=== PATIENT | female | born 1945 | race Caucasian/White ===

== ENCOUNTER 2017-03-08 09:00 | Day surgery (SDC) | payer MEDICARE ==
[2017-03-06 08:46] VITALS: BMI 37.0
[~2017-03-08 09:00] MED LIST: LACTATED RINGERS 1,000 ML IV SCH
[2017-03-08 09:26] VITALS: TEMP 98.9
[2017-03-08] MEDS ORDERED: LIDOCAINE 1% 20 ML VIAL (10MG/ML) FOR IV START INTRADERMA ONE (09:31)
--- NOTE | 2017-03-08 10:43 | P.PCN ---
Date of Procedure: 03/08/17 Preoperative Diagnosis: Postoperative Diagnosis: Procedure(s) Performed: Procedures: Esophagogastroduodenoscopy and biopsy and colonoscopy and polypectomy. Preoperative diagnosis: Chronic reflux symptoms, symptomatic despite therapy and intermittent dysphagia. History of polyps. Postoperative diagnosis: 1. Hiatal hernia with no obvious esophagitis or completed complicated reflux disease. 2. Mild antral gastritis. 3. Diverticulosis of the colon with no evidence of acute diverticulitis. 4. Distal sigmoid stricture required use of the pediatric colonoscope. 5. Two small polyps snared one in the cecum and one in the distal sigmoid but no large polyps or cancer. Preparation: HalfLytely prep. Sedation: Was provided by anesthesia. Brief clinical history: The patient is a 71-year-old female who I have evaluated in the past regarding chronic reflux symptoms and history of polyps. I have seen her in the office recently and she has been having issues with symptomatic reflux despite treatment as well as intermittent dysphagia. We scheduled both an upper endoscopy and colonoscopy because of her history. Since her office visit, she apparently has been having some nonspecific abdominal discomfort as well. Procedure: With the patient on her left lateral decubitus position and after informed consent and adequate sedation, I passed the Olympus-GIF 160 video upper endoscope through the cricopharyngeus down the esophagus. GE junction was around 35-36 cm from the incisors and there was a moderately sized hiatal hernia around 3-4 cm. The esophagus did not show any definite inflammation and there was no obstructing strictures or Ramirez's esophagus. The endoscope was then passed into the stomach which was insufflated with air and inspected in detail including the retroflex view in the cardia. There was some mottling and erythema in the antrum but no ulcers or erosions. Pyloric channel did not show any ulcers. Duodenal bulb, post bulbar area and descending duodenum showed minimal erythema. I obtained biopsies from the duodenum, antrum and esophagus then I proceeded with the colonoscopy. Perianal area did not show any fissures or fistulas. There were no masses felt on digital rectal examination. The Olympus CFH 190L was initially used and was inserted in the rectum in the usual fashion and advanced. However, I was not able to advance it in the distal sigmoid where there was significant diverticular disease and what appeared to be a benign distal stricture possibly related to prior diverticulitis. I exchanged the endoscope with a pediatric PCFQ 180 AL video colonoscope which I was able to pass in that area and advance all the way to the cecum. There was a flat small polyp in the cecum which I snared and there was a small polyp in the distal sigmoid just distal to the strictured area, just described, which I snared as well and retrieved by suction. The mucosa appeared healthy. Other diverticular orifices were seen scattered on the left side and some on the right side with no evidence of acute diverticulitis or strictures. I retroflexed the endoscope in the rectum before the endoscope was withdrawn. The patient tolerated the procedure well. Plan: The patient was reassured. Will await pathology results. Further plans can be made based on her course and biopsy results. I will keep you updated on her progress. Consideration will be made for repeat colonoscopy in 5 years depending on her overall health at that time. She will follow-up with you as planned. Implants: Indications for Procedure: Operative Findings: Description of Procedure:
[2017-03-08 10:57] VITALS: BP 128/77; PULSE 65; RESP 18
== END 2017-03-08 11:02 | disposition home or self-care (01) ==
LOC: ORWHC2ENDO 09:00
DX: K29.50 Unspecified chronic gastritis without bleeding (principal); K44.9 Diaphragmatic hernia without obstruction or gangrene; K57.30 Diverticulosis of large intestine without perforation or abscess without bleeding; K56.69 Other intestinal obstruction; K63.5 Polyp of colon; D12.5 Benign neoplasm of sigmoid colon; K21.9 Gastro-esophageal reflux disease without esophagitis; I10 Essential (primary) hypertension; M19.90 Unspecified osteoarthritis, unspecified site; E78.5 Hyperlipidemia, unspecified; E07.9 Disorder of thyroid, unspecified; Z79.899 Other long term (current) drug therapy; Z88.0 Allergy status to penicillin; Z88.2 Allergy status to sulfonamides
CPT/HCPCS: 43239; 45385; 88305; 88342

== ENCOUNTER → 2018-02-18 | Outpatient (CLI) | payer MEDICARE ==
--- NOTE | 2018-02-18 11:01 | US ---
EXAMINATION TYPE: US abdomen complete DATE OF EXAM: 02/18/2018 COMPARISON: NONE CLINICAL HISTORY: 72-year-old female R10.13 Epigastric Pain. TECHNIQUE: Multiple sonographic images of the abdomen are obtained. FINDINGS: Liver Length: 12.4 cm Gallbladder Wall: 0.2 cm CBD: 0.2 cm Spleen: 9.2 cm Right Kidney: 10.6 x 4.8 x 4.7 cm Left Kidney: 10.3 x 4.4 x 4.3 cm Pancreas: hypoechoic area seen at the head neck junction anteriorly measuring 1.0 x 0.5 x 0.6cm . Th is is nonspecific. Liver: wnl Gallbladder: wnl Evidence for sonographic Cantu's sign: no CBD: wnl Spleen: wnl Right Kidney: No hydronephrosis. Left Kidney: Small cortical cysts are present measuring 1.0 cm and 1.1 cm. Some internal echoes are felt to be artifactual or could represent debris. No hydronephrosis. Upper IVC: wnl Abd Aorta: bifurcation obscured by bowel gas otherwise wnl IMPRESSION: 1. A nonspecific 1.0 cm hypoechoic area anterior pancreas at the head neck junction. 3 month follow-u p ultrasound and 3 month follow-up pancreas MRI recommended to reassess. 2. A couple small cortical cysts measuring 1.1 cm in the left kidney. Internal echoes are felt to be artifactual or could represent debris.
== END | disposition home or self-care (01) ==
LOC: RADUSWWP 07:32
DX: N28.1 Cyst of kidney, acquired (principal); R93.3 Abnormal findings on diagnostic imaging of other parts of digestive tract
CPT/HCPCS: 76700

== ENCOUNTER → 2018-05-17 | Outpatient (CLI) | payer MEDICARE ==
--- NOTE | 2018-05-17 09:25 | US ---
EXAMINATION TYPE: US abdomen complete DATE OF EXAM: 05/17/2018 COMPARISON: 02/18/2018 abdominal ultrasound CLINICAL HISTORY: R93.2 Abn findings on diagnostic imaging. Follow up prior abnormal ultrasound EXAM MEASUREMENTS: Liver Length: 16.0 cm Gallbladder Wall: 0.2 cm CBD: 0.5 cm Spleen: 9.4 cm Right Kidney: 10.7 x 4.5 x 4.5 cm Left Kidney: 10.5 x 4.9 x 4.4 cm Pancreas: possible hypoechoic area at head neck junction as noted on prior exam = 0.9 x 0.5 x 0.8cm . This previously measured 1.0 x 0.5 x 0.6 cm. Liver: wnl Gallbladder: non-mobile hyperechoic area = 0.3cm, probable polyp Evidence for sonographic Cantu's sign: no CBD: wnl Spleen: wnl Right Kidney: no evidence of hydronephrosis Left Kidney: cystic areas noted measuring 1.2cm and 0.9cm Upper IVC: wnl Abd Aorta: wnl The liver is homogenous. The intrahepatic portion of the IVC and proximal abdominal aorta are within normal limits. There is no evidence of cholelithiasis. Common bile duct is unremarkable. The splee n is unremarkable. Kidneys are symmetric and free of hydronephrosis. IMPRESSION: 1. Pancreatic head lesion that requires further workup with three-phase enhanced CT (pancreatic mass protocol) or MR. 2. Solitary 3 mm probable gallbladder polyp. For polyps of ascites annual surveillance is recommended . 3. Left 1.2 cm cortical renal cysts.
[2018-05-17 09:35] LABS: Amylase 55 U/L (30-110); Lipase 208 U/L (23-300)
== END | disposition home or self-care (01) ==
LOC: RADUSWWP 08:02
DX: N28.1 Cyst of kidney, acquired (principal); K86.89 Other specified diseases of pancreas; R93.2 Abnormal findings on diagnostic imaging of liver and biliary tract
CPT/HCPCS: 36415; 76700; 82150; 83690; 86301

== ENCOUNTER → 2018-05-18 | Outpatient (CLI) | payer MEDICARE ==
--- NOTE | 2018-05-18 10:13 | MR ---
EXAMINATION TYPE: MR pancreas wo/w con DATE OF EXAM: 05/18/2018 COMPARISON: Ultrasound dated 05/17/2018. HISTORY: Abn findings on US done in January and April 2018, at which time pt was having epigastric carol n CONTRAST: Standard multiplanar, multisequence MRI departmental protocol utilizing 7.5 mL intravenous Gadavist g adolinium contrast. FINDINGS: The liver, spleen and gallbladder are unremarkable. The distal common hepatic duct is shayla l in size. The pancreatic duct is normal in size. No cystic or solid lesion is seen within the pancre as. There is a small 11 mm cortical cyst in the mid polar region of the left kidney. There are 3 subcenti meter cysts within the right kidney. Following intravenous administration of gadolinium, I do not see evidence of abnormal enhancement in the pancreas. IMPRESSION: 1. NO DEFINITE PANCREATIC LESION IDENTIFIED. 2. SIMPLE APPEARING BILATERAL RENAL CYSTS.
== END | disposition home or self-care (01) ==
LOC: RADMRIMAIN 08:11
DX: N28.1 Cyst of kidney, acquired (principal); R93.2 Abnormal findings on diagnostic imaging of liver and biliary tract
CPT/HCPCS: 82565; 84520; 74183; 36415; A9585

== ENCOUNTER → 2018-07-09 | Outpatient (CLI) | payer MEDICARE ==
[2018-07-09 08:16] VITALS: BP 138/87; PULSE 80; TEMP 98; BMI 35.5
--- NOTE | 2018-07-09 09:00 | P.HPOB ---
History of Present Illness H&P Date: 07/09/18 Chief Complaint: The patient is here for her routine gynecologic exam and mammogram. This is a 72-year-old G0 with an LMP of 1985 who is status post ANAYA for benign reasons. The patient is without gynecologic complaints. Review of Systems She is lost 6 pounds over the last year. She denies respiratory or cardiac problems. G.I.: occasional gastric reflux. She denies maltreatment or problems with falling. : she has occasional urinary leakage if she cannot get to the bathroom in time. Past Medical History Past Medical History: GERD/Reflux, Hyperlipidemia, Hypertension, Osteoarthritis (OA), Thyroid Disorder (Hypothyroid) Additional Past Medical History / Comment(s): MACULAR DEGENERATION. 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 ANAYA was done for uterine fibroids. History of Any Multi-Drug Resistant Organisms: None Reported Past Surgical History: Hernia Repair, Hysterectomy (ANAYA in 1985), Joint Replacement (Bilateral hip replacements, right knee replacement, right shoulder replacement.), Orthopedic Surgery Additional Past Surgical History / Comment(s): THYROIDECTOMY, BILATERAL INGUINAL HERNIA REPAIR, RIGHT TOTAL HIP, LEFT TOTAL HIP, TOTAL RIGHT SHOULDER REPLACMENT, TOTAL RIGHT KNEE REPLACEMENT. Colonoscopy with upper endoscopy 2017 (2nd). 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 - Past Family History Mother Family Medical History: Cancer (Lung cancer), Hypertension Father Family Medical History: Cancer (Esophageal cancer), Hypertension Brother(s) Family Medical History: Cancer (Colon cancer and skin cancer) Medications and Allergies Home Medications Medication Instructions Recorded Confirmed Type Acetaminophen Tab [Tylenol Tab] 500 mg PO Q6H 03/06/17 07/09/18 History Aspirin 81 mg PO DAILY 03/06/17 07/09/18 History Cholecalciferol (Vitamin D3) 2,000 unit PO DAILY 03/06/17 07/09/18 History [Vitamin D3] Iron 28 mg PO DAILY 03/06/17 07/09/18 History Levothyroxine Sodium [Synthroid] 175 mcg PO MOTUWETHFRSA 03/06/17 07/09/18 History Pantoprazole [Protonix] 40 mg PO BID 03/06/17 07/09/18 History Pravastatin Sodium [Pravachol] 40 mg PO DAILY 03/06/17 07/09/18 History Ranitidine HCl [Zantac] 150 mg PO HS 03/06/17 07/09/18 History Triamterene/Hydrochlorothiazid 1 each PO DAILY 03/06/17 07/09/18 History [Triamterene-Hctz 37.5-25 mg Tb] Vit C/E/Zn/Coppr/Lutein/Zeaxan 1 each PO BID 03/06/17 07/09/18 History [Preservision Areds 2 Softgel] amLODIPine BESYLATE/BENAZEPRIL 1 cap PO DAILY 03/06/17 07/09/18 History [amLODIPine BESYLATE/BENAZEPRIL 5-10 mg] Clindamycin [Cleocin] 300 mg PO Q6H 07/09/18 07/09/18 History HYDROcodone/APAP 10-325MG [[place] PO Q4-6H 07/09/18 History 10-325] Mirabegron [Myrbetriq] 25 mg PO DAILY 07/09/18 07/09/18 History Allergies Allergy/AdvReac Type Severity Reaction Status Date / Time Penicillins Allergy Rash/Hives Verified 07/09/18 08:16 Sulfa (Sulfonamide Allergy Rash/Hives Verified 07/09/18 08:16 Antibiotics) Exam Vital Signs Temp Pulse BP 07/09/18 08:06 98.0 F 80 138/87 Intake and Output 07/08/18 07/09/18 07/09/18 22:59 06:59 14:59 Other: Weight 82.554 kg Height 5'0", weight 182 pounds, BMI 35.5. This is a well-developed well-nourished heavyset white female who is alert and oriented times 3 in no acute distress. HEENT: Within normal limits. NECK: Supple without mass or thyromegaly. CHEST AND LUNGS: Clear to auscultation. HEART: Regular rate and rhythm. BREASTS: Are without mass or discharge. AXILLARY EXAM: Negative for adenopathy. BACK: Negative for CVA tenderness. ABDOMEN: Soft, nontender, without palpable masses. PELVIC EXAM: External genitalia appears normal with moderate atrophy. Vagina appears normal with mild to moderate atrophy. There is no evidence of prolapse. Bimanual examination is negative for mass or tenderness. RECTAL EXAM: Rectovaginal exam is negative for mass or tenderness and is negative for occult blood. EXTREMITIES: Nontender. There is limited range of motion in the right shoulder consistent with her recent surgery. IMPRESSION: 1. 72-year-old menopausal female who is status post ANAYA for benign reasons with normal gynecologic exam. 2. History of multiple medical problems. PLAN: 1. Pap smears have been discontinued. 2. Self breast awareness was discussed with the patient. 3. Screening mammogram will be done today. 4. Osteoporosis prevention was discussed. I have stressed the importance of adequate calcium, vitamin D and regular exercise. Recommended amounts of calcium and vitamin D were also discussed. She was doing bone density testing through Dr. Cox, her coroner/medical examiner. Her last one was about 10 years ago. She will discuss this with Dr. Cox and if desired, she can do bone density testing here. She will consider doing this next year. 5. She plans on getting her flu shot in the near future. 6. She will return in one year.
--- NOTE | 2018-07-10 14:26 | MM ---
Reason for exam: screening (asymptomatic). Last mammogram was performed 1 year and 1 month ago. History: Patient is postmenopausal and is nulliparous. Taking other hormone for 43 years beginning at age 20. Physical Findings: A clinical breast exam by your physician is recommended on an annual basis and results should be correlated with mammographic findings. MG 3D Screening Mammo W/Cad Bilateral CC and MLO view(s) were taken. Prior study comparison: May 30, 2017, bilateral MG 3d screening mammo w/cad. May 24, 2016, bilateral MG screening mammo w CAD. The breast tissue is heterogeneously dense. This may lower the sensitivity of mammography. Benign appearing bilateral calcifications. Asymmetry of the right outer quadrant at middle depth similar to priors. ASSESSMENT: Benign, BI-RAD 2 RECOMMENDATION: Routine screening mammogram of both breasts in 1 year.
== END | disposition home or self-care (01) ==
LOC: WWCWWP 08:00
PROVIDERS: ATTEND Obstetrics & Gynecology
DX: Z12.31 Encounter for screening mammogram for malignant neoplasm of breast (principal)
CPT/HCPCS: 77063; 77067

== ENCOUNTER → 2018-12-25 | Outpatient (CLI) | payer MEDICARE ==
--- NOTE | 2018-12-25 07:51 | US ---
EXAMINATION TYPE: US abdomen limited DATE OF EXAM: 12/25/2018 COMPARISON: US CLINICAL HISTORY: K86.2 Cyst of Pancreas. EXAM MEASUREMENTS: Liver Length: 15.2 cm Gallbladder Wall: 0.2 cm CBD: 0.5 cm Right Kidney: 10.2 x 5.3 x 4.2 cm Pancreas: hypoechoic area at pancreatic head as previously seen = 0.9 x 0.8 x 0.7cm Liver: heterogeneous appearance Gallbladder: polyp on anterior wall = 0.6 x 0.2 x 0.3cm; mobile, hyperechoic focus seen in posterior gallbladder = 0.4 x 0.5 x 0.2cm Evidence for sonographic Cantu's sign: no CBD: wnl Right Kidney: No hydronephrosis or masses seen IMPRESSION: 1. Cholelithiasis with small gallbladder wall polyp noted as well. No wall thickening or pericholecys tic fluid.
== END | disposition home or self-care (01) ==
LOC: RADUSWWP 06:55
DX: K80.20 Calculus of gallbladder without cholecystitis without obstruction (principal)
CPT/HCPCS: 76705

== ENCOUNTER → 2019-04-01 | Outpatient (CLI) | payer MEDICARE ==
--- NOTE | 2019-04-01 09:49 | CT ---
EXAMINATION TYPE: CT chest w con DATE OF EXAM: 04/01/2019 COMPARISON: None HISTORY: Known hiatal hernia follow up. Difficulty breathing CT DLP: 441 mGycm Automated exposure control for dose reduction was used. CONTRAST: CT scan of the chest is performed with IV Contrast, patient injected with 100 mL of Isovue 300. FINDINGS: LUNGS: No consolidative pneumonia, pleural effusion or pneumothorax. Subsegmental changes left lung b ase most typical of atelectasis. Suggestion of possible 3 mm nodule along the lateral margin of the l eft lower lobe and within the right lower lobe superior segment. No pneumothorax or pleural effusion. MEDIASTINUM: Heart is enlarged and there is coronary artery calcification. Aorta of normal caliber. T here is an aberrant course of the right subclavian artery OTHER: There is a large hiatal hernia. Multilevel hypertrophic and degenerative severe disc disease noted. There are 2 subcentimeter hypodensities involving the left kidney and a single subcentimeter n odule on the right too small to characterize. Left adrenal gland thickening is stable most likely in the basis of hyperplasia. There is a right aberrant subclavian artery. There also is an aberrant cour se of the right and left common carotid arteries appear to extend posterior to the esophagus before a dvancing into the neck. This can sometimes be associated with a vascular ring. Postsurgical change ri ght shoulder. There is a hepatic lesion of the dome of the liver with some faint enhancement. IMPRESSION: 1. Large hiatal hernia. 2. There are two vague 3 mm pulmonary nodules as discussed above which are too small to characterize and could be followed on a 6 month basis to confirm stability. 3. Coronary artery atherosclerotic disease. 4. There are two small hypodensities which are subcentimeter involving the left kidney and a single s ubcentimeter hypodensity involving the right kidney. The lateral cortical lesion on the left does not meet the criteria of a simple cyst. This is similar in size to the prior MRI of 05/18/2018 where it also was not compatible with a simple cyst. due to its small size it is too small to characterize. H igh proteinaceous cyst in the differential diagnosis. Other etiologies not excluded. Would recommend a 6 month follow-up CT of the abdomen. The other renal lesions are seen to be simple cyst by previous MRI. 5. Correlate for left adrenal hyperplasia. 6. Aberrant right subclavian artery with diverticulum of Kommerell. 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 7. Hyperdense left hepatic lobe lesion near the dome of the liver most likely the basis of a flash he mangioma. Retrospectively stable from prior MRI.
== END | disposition home or self-care (01) ==
LOC: RADCTMAIN 07:48
PROVIDERS: ATTEND Surgery
DX: I25.10 Atherosclerotic heart disease of native coronary artery without angina pectoris (principal)
CPT/HCPCS: 82565; 84520; 71260; 36415; Q9967

== ENCOUNTER → 2019-04-10 | Outpatient (CLI) | payer MEDICARE ==
[~2019-04-10] MED LIST changes: +DOBUTamine DRIP for NUC MED 500 MG in DEXTROSE/WATER 1 250ML.BAG IV ONE; -LACTATED RINGERS 1,000 ML IV SCH
--- NOTE | 2019-04-11 12:29 | ECHOS ---
STRESS ECHOCARDIOGRAM DOBUTAMINE STRESS ECHOCARDIOGRAM DATE OF SERVICE: 04/10/2019 INDICATIONS: Chest pain. MEDICATIONS: BASELINE HEART RATE: 87 BASELINE BLOOD PRESSURE: 124/85 MAXIMUM HEART RATE: 126 MAXIMUM BLOOD PRESSURE: 172/64 85% MPHR: 124 100% MPHR: 146 METS: MAXIMUM STAGE REACHED: TOTAL EXERCISE TIME: CLINICAL INFORMATION: STRESS DATA: Heart rate 87, pressure is 124/85 mmHg. Baseline EKG showed sinus mechanism. Dobutamine infusion at a dose of 10 mcg/kg was initiated and increased to 20 mcg/kg. Max heart rate was 126, which is about 86% of maximum predicted heart rate. Maximum pressure was 172/64 mmHg. Clinically the patient did not report any symptoms of chest pain or chest discomfort. The EKG did not show any significant ST or T-wave abnormalities concerning for ischemia. ECHOCARDIOGRAM IMAGES: On echocardiogram images from parasternal long axis view, parasternal short axis view, apical 4 chamber and 2 chamber view were obtained as the baseline images, at low dose dobutamine infusion, as well as on recovery. The echocardiogram showed good augmentation in the left ventricular systolic function without any evidence of wall motion abnormalities. CONCLUSION: 1. Normal EKG in response to dobutamine. 2. Normal echocardiogram in response to dobutamine. 3. Essentially normal dobutamine stress echocardiogram. MMODL / IJN: [id number] /
== END | disposition home or self-care (01) ==
LOC: RADNMMAIN 09:41
PROVIDERS: ATTEND Internal Medicine
DX: R06.09 Other forms of dyspnea (principal)
CPT/HCPCS: 93351; J1250

== ENCOUNTER → 2019-08-25 | Outpatient (CLI) | payer MEDICARE ==
--- NOTE | 2019-08-25 08:59 | US ---
EXAMINATION TYPE: US abdomen complete DATE OF EXAM: 08/25/2019 COMPARISON: MRI 05/18/2018, US 05/17/2018 and 02/18/2018 CLINICAL HISTORY: K86.2 Cyst of pancreas. EXAM MEASUREMENTS: Liver Length: 15.8 cm Gallbladder Wall: 0.2 cm CBD: 0.4 cm Spleen: 8.8 cm Right Kidney: 10.7 x 4.3 x 4.8 cm Left Kidney: 10.3 x 4.7 x 3.7 cm Pancreas: Hypoechoic area visualized in pancreatic head measuring 0.8 x 0.4 x 0.6 cm. This measured 1.0 x 0.5 x 0.6 cm on the ultrasound of 02/18/2018. Liver: Heterogeneous. Hyperechoic area visualized left lobe measuring 1.4 x 1.0 x 1.2 cm. This appea rs as a hemangioma on the MRI of 05/18/2018. Gallbladder: Two echogenic areas visualized. First non-shadowing foci measuring 0.4cm, possible poly p. Second echogenic foci shows some posterior shadowing in images 54 & 57 Evidence for sonographic Cantu's sign: No CBD: wnl Spleen: wnl Right Kidney: No hydronephrosis. Unable to visualize area seen on previous MRI Left Kidney: No hydronephrosis. Possible renal sinus cyst measuring 2.0 x 0.8 x 1.3 cm. Isoechoic ar ea visualized laterally measuring 1.2 x 1.2 x 1.0 cm. This has increased in size from the prior [facility] t CT of 04/01/2019 where this was subcentimeter. Upper IVC: wnl Abd Aorta: wnl IMPRESSION: 1. The pancreatic head lesion seen best on ultrasound appears to be stable dating back to 02/18/2018 a nd therefore is favored to be benign. This was not seen on the MRI of 05/18/2018 although extensive m otion artifact is noted on that examination. 2. Left renal 1.2 cm lesion is again not compatible with a simple cyst. Given its interval increase i n size or diagnostic exam could be considered such as three-phase abdominal CT prior to assessment fo r percutaneous biopsy. 3. Suboptimal visualization of the right kidney. The known cysts are not identified. 4. Left hepatic lobe lesion is most compatible with a benign hemangioma on ultrasound and MRI.
== END | disposition home or self-care (01) ==
LOC: RADUSWWP 07:38
PROVIDERS: ATTEND Internal Medicine Gastroenterology
DX: K86.2 Cyst of pancreas (principal)
CPT/HCPCS: 76700

== ENCOUNTER → 2020-06-16 | Outpatient (CLI) | payer MEDICARE ==
[2020-06-16 11:57] VITALS: BP 131/79; PULSE 93; RESP 18; TEMP 98.3
--- NOTE | 2020-06-16 13:08 | P.HPOB ---
History of Present Illness H&P Date: 06/16/20 Chief Complaint: The patient is here for her routine gynecologic exam and ma mmogram. This is a 74-year-old G0 with an LMP of 1985. She is status post ANAYA for benign reasons. She has been experiencing some urinary incontinence where if she does not get to the bathroom upon early sensation, she can leak. She does wear a pad. She denies any dysuria and states it does not feel like a urinary tract infection. She was on a medication for urge incontinence (?Myrbetriq) which did not seem to help much. She is otherwise without complaints. Review of Systems She is gained about 6 pounds over the past year. She denies respiratory or cardiac problems. GI: She has some symptoms from her hiatal hernia if she eats too much. She denies maltreatment or problems with falling. : She has had some problems with urge incontinence as in the HPI. She states she does not have much of a problem with coughing and sneezing. Past Medical History Past Medical History: GERD/Reflux, Hyperlipidemia, Hypertension, Osteoarthritis (OA), Thyroid Disorder Additional Past Medical History / Comment(s): MACULAR DEGENERATION. Hiatal hernia. Hypothyroidism. 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 ANAYA was done for uterine fibroids. History of Any Multi-Drug Resistant Organisms: None Reported Past Surgical History: Hernia Repair, Hysterectomy, Joint Replacement, Orthopedic Surgery Additional Past Surgical History / Comment(s): THYROIDECTOMY, BILATERAL INGUINAL HERNIA REPAIR, RIGHT TOTAL HIP, LEFT TOTAL HIP, TOTAL RIGHT SHOULDER REPLACMENT, TOTAL RIGHT KNEE REPLACEMENT. ANAYA in 1985. Colonoscopy with upper endoscopy 2017(2nd). 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 - Past Family History Mother Family Medical History: Cancer, Hypertension Additional Family Medical History / Comment(s): Lung cancer. Father Family Medical History: Cancer, Hypertension Additional Family Medical History / Comment(s): Esophageal cancer. Brother(s) Family Medical History: Cancer Additional Family Medical History / Comment(s): Colon cancer and skin cancer. Medications and Allergies Home Medications Medication Instructions Recorded Confirmed Type Acetaminophen Tab [Tylenol Tab] 500 mg PO Q6H 03/06/17 06/16/20 History Cholecalciferol (Vitamin D3) 2,000 unit PO DAILY 03/06/17 06/16/20 History [Vitamin D3] Levothyroxine Sodium [Synthroid] 175 mcg PO MOTUWETHFRSA 03/06/17 06/16/20 History Pantoprazole [Protonix] 40 mg PO BID 03/06/17 06/16/20 History Pravastatin Sodium [Pravachol] 40 mg PO DAILY 03/06/17 06/16/20 History Ranitidine HCl [Zantac] 150 mg PO HS 03/06/17 06/16/20 History Triamterene/Hydrochlorothiazid 1 each PO DAILY 03/06/17 06/16/20 History [Triamterene-Hctz 37.5-25 mg Tb] Vit C/E/Zn/Coppr/Lutein/Zeaxan 1 each PO BID 03/06/17 06/16/20 History [Preservision Areds 2 Softgel] amLODIPine BESYLATE/BENAZEPRIL 1 cap PO DAILY 03/06/17 06/16/20 History [amLODIPine BESYLATE/BENAZEPRIL 5-10 mg] Mirabegron [Myrbetriq] 25 mg PO DAILY 07/09/18 06/16/20 History Levothyroxine Sodium [Synthroid] 175 mcg PO DAILY 06/16/20 06/16/20 History Allergies Allergy/AdvReac Type Severity Reaction Status Date / Time Penicillins Allergy Rash/Hives Verified 06/16/20 11:58 Sulfa (Sulfonamide Allergy Rash/Hives Verified 06/16/20 11:58 Antibiotics) Exam Vital Signs Temp Pulse Resp BP 06/16/20 11:47 98.3 F 93 18 131/79 Intake and Output 06/15/20 06/16/20 06/16/20 22:59 06:59 14:59 Other: Weight 85.275 kg Height 5 feet 2 inches, weight 188 pounds, BMI 34.4. This is a well-developed well-nourished heavyset white female who is alert and oriented times 3 in no acute distress. HEENT: Within normal limits. NECK: Supple without mass or thyromegaly. CHEST AND LUNGS: Clear to auscultation. HEART: Regular rate and rhythm. BREASTS: Are without mass or discharge. Underneath the breasts, there is rough dry skin which appears benign. AXILLARY EXAM: Negative for adenopathy. BACK: Negative for CVA tenderness. ABDOMEN: Soft, nontender, without palpable masses. PELVIC EXAM: External genitalia appears normal with moderate atrophy. Vagina appears normal with mild to moderate atrophy. There is a grade 1-2 cystocele at rest which increases to a grade 2 cystocele with Valsalva. No urinary leakage was demonstrated with cough or Valsalva. Bimanual examination is negative for mass or tenderness. There was no significant rectocele noted. RECTAL EXAM: Rectovaginal exam is negative for mass or tenderness and is negative for occult blood. EXTREMITIES: Nontender. IMPRESSION: 1. 74-year-old female status post ANAYA with a grade 1-2 cystocele. 2. Urge incontinence which did not improve significantly with medication per the patient. PLAN: 1. Pap smears have been discontinued. 2. Self breast awareness was discussed with the patient. 3. Screening mammogram was done today. 4. We have had a long discussion regarding her urinary incontinence. I have recommended regular ketal exercises and timed voids. We have also discussed the small cystocele and I do not feel surgical correction is needed at this time. I have also recommended that she try to empty her bladder as completely as possible when she does void and she should do this by giving herself more time and by relaxing. She should avoid bearing down and should also avoid holding her urine longer than necessary. 5. She did receive her flu shot this fall. She will also consider the Covid vaccination when available. 6.Osteoporosis prevention was discussed. I have stressed the importance of adequate calcium, vitamin D and regular exercise. Recommended amounts of calcium and vitamin D were also discussed. She is declining bone density testing at this time and states she will try to do this next year. 7. She was advised to return in one year for her annual well woman exam and as needed.
--- NOTE | 2020-06-18 09:14 | MM ---
Reason for exam: screening (asymptomatic). Last mammogram was performed 1 year and 11 months ago. History: Patient is postmenopausal and is nulliparous. Taking other hormone for 43 years beginning at age 20. Physical Findings: A clinical breast exam by your physician is recommended on an annual basis and results should be correlated with mammographic findings. MG 3D Screening Mammo W/Cad Bilateral CC and MLO view(s) were taken. Prior study comparison: July 09, 2018, bilateral MG 3d screening mammo w/cad. May 30, 2017, bilateral MG 3d screening mammo w/cad. The breast tissue is heterogeneously dense. This may lower the sensitivity of mammography. No significant changes when compared with prior studies. ASSESSMENT: Benign, BI-RAD 2 RECOMMENDATION: Routine screening mammogram of both breasts in 1 year.
== END | disposition home or self-care (01) ==
LOC: WWCWWP 11:08
PROVIDERS: ATTEND Obstetrics & Gynecology
DX: Z12.31 Encounter for screening mammogram for malignant neoplasm of breast (principal)
CPT/HCPCS: 77063; 77067

== ENCOUNTER → 2021-01-13 | Outpatient (CLI) | payer MEDICARE ==
--- NOTE | 2021-01-13 08:26 | CT ---
EXAMINATION TYPE: CT chest abdomen wo con DATE OF EXAM: 01/13/2021 COMPARISON: Ultrasound 08/25/2019, CT 04/01/2019 HISTORY: Cyst on kidney CT DLP: 545.9 mGycm Automated exposure control for dose reduction was used. Helical imaging obtained through the chest an d abdomen without contrast FINDINGS: Lack of contrast could compromise sensitivity of the exam. Chest shows no suspicious lung nodule. There is no pleural or pericardial effusion. Postop changes ar e noted to the right shoulder with some streak artifact. There are dense coronary artery calcificatio ns present. No mediastinal, axillary, or hilar adenopathy. Aorta shows normal caliber. 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 Left kidney lesion in question shows some increased Hounsfield units, measures approximately 15 mm at the midpole laterally, the posterior aspect of the left kidney shows a probable exophytic cortical c yst unchanged. Posterior aspect of the right kidney also shows a probable cortical cyst not described on prior ultrasound, essentially stable in size compared to prior CT, there may be some slight incre ase in Hounsfield units. There is again noted hiatal hernia with partial intrathoracic stomach. No retroperitoneal adenopathy. The aorta shows normal caliber. There is no pneumoperitoneum or evident ascites. Facet arthropathy, degenerative disc change noted in the visualized spine. Gallbladder and liver shows no interval dailey e, spleen, adrenal glands, pancreas are stable. Diverticular changes associated with the bowel. IMPRESSION: RENAL LESIONS DESCRIBED. FINDINGS COULD POSSIBLY REPRESENT PROTEINACEOUS CYSTS, FOLLOW-UP COULD BE PERFORMED TO ASSESS FOR STABILITY, RENAL MRI COULD BE PERFORMED FOR ADDITIONAL EVALUATION. LIMITATIO NS DUE TO LACK OF CONTRAST. Additional findings above.
== END | disposition home or self-care (01) ==
LOC: RADCTMAIN 07:17
PROVIDERS: ATTEND Internal Medicine
DX: N28.89 Other specified disorders of kidney and ureter (principal)
CPT/HCPCS: 71250; 74150

== ENCOUNTER → 2021-06-21 | Outpatient (CLI) | payer MEDICARE ==
--- NOTE | 2021-06-22 10:28 | MM ---
Reason for exam: screening (asymptomatic). Last mammogram was performed 1 year ago. History: Patient is postmenopausal and is nulliparous. Taking other hormone for 43 years beginning at age 20. Physical Findings: A clinical breast exam by your physician is recommended on an annual basis and results should be correlated with mammographic findings. MG 3D Screening Mammo W/Cad Bilateral CC and MLO view(s) were taken. Prior study comparison: June 16, 2020, bilateral MG 3d screening mammo w/cad. July 09, 2018, bilateral MG 3d screening mammo w/cad. The breast tissue is heterogeneously dense. This may lower the sensitivity of mammography. Stable benign calcifications. There is no discrete abnormality. No significant changes when compared with prior studies. ASSESSMENT: Benign, BI-RAD 2 RECOMMENDATION: Routine screening mammogram of both breasts in 1 year.
== END | disposition home or self-care (01) ==
LOC: RADMAMWWP 11:42
PROVIDERS: ATTEND Obstetrics & Gynecology
DX: Z12.31 Encounter for screening mammogram for malignant neoplasm of breast (principal)
CPT/HCPCS: 77063; 77067

== ENCOUNTER → 2021-06-21 | Outpatient (CLI) | payer MEDICARE ==
[2021-06-21 11:03] VITALS: BP 127/82; PULSE 89; RESP 18; TEMP 98.2
--- NOTE | 2021-06-21 11:51 | P.HPOB ---
History of Present Illness H&P Date: 06/21/21 Chief Complaint: The patient is here for her routine gynecologic exam and ma mmogram. This is a 75-year-old G0 with an LMP of 1985. The patient is status post ANAYA for benign reasons. She continues to experience urinary incontinence especially when going to a upright position. She often notices that she has to get to the bathroom right away or she will leak. She says that 98% of the time the pad that she wears will catch the urine without getting her underwear wet. She previously used the used a medication for urge incontinence which did not seem to help much. She is otherwise without gynecologic complaints. Review of Systems She has gained about 9 pounds over the past year. She denies cardiac problems. Respiratory: After a large meal she can have some difficulty breathing. She attributes this to her large hiatal hernia. GI: Large meals can be problematic secondary to her hiatal hernia. : See the HPI. Past Medical History Past Medical History: GERD/Reflux, Hyperlipidemia, Hypertension, Osteoarthritis (OA), Thyroid Disorder Additional Past Medical History / Comment(s): MACULAR DEGENERATION. Large Hiatal hernia. Hypothyroidism. Chronic low back pain. 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 ANAYA was done for uterine fibroids. History of Any Multi-Drug Resistant Organisms: None Reported Past Surgical History: Hernia Repair, Hysterectomy, Joint Replacement, Orthopedic Surgery Additional Past Surgical History / Comment(s): THYROIDECTOMY, BILATERAL INGUINAL HERNIA REPAIR, RIGHT TOTAL HIP, LEFT TOTAL HIP, TOTAL RIGHT SHOULDER REPLACMENT, TOTAL RIGHT KNEE REPLACEMENT. ANAYA in 1985. Colonoscopy with upper endoscopy 2017(2nd). 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 - Past Family History Mother Family Medical History: Cancer, Hypertension Additional Family Medical History / Comment(s): Lung cancer. Father Family Medical History: Cancer, Hypertension Additional Family Medical History / Comment(s): Esophageal cancer. Brother(s) Family Medical History: Cancer Additional Family Medical History / Comment(s): Colon cancer and skin cancer. Medications and Allergies Home Medications Medication Instructions Recorded Confirmed Type Acetaminophen Tab [Tylenol Tab] 500 mg PO Q6H 08/08/17 11/23/21 History Cholecalciferol (Vitamin D3) 2,000 unit PO DAILY 03/06/17 06/21/21 History [Vitamin D3] Pantoprazole [Protonix] 40 mg PO BID 03/06/17 06/21/21 History Pravastatin Sodium [Pravachol] 40 mg PO DAILY 03/06/17 06/21/21 History Ranitidine HCl [Zantac] 150 mg PO HS 03/06/17 06/21/21 History Triamterene/Hydrochlorothiazid 1 each PO DAILY 03/06/17 06/21/21 History [Triamterene-Hctz 37.5-25 mg Tb] Vit C/E/Zn/Coppr/Lutein/Zeaxan 1 each PO BID 03/06/17 06/21/21 History [Preservision Areds 2 Softgel] amLODIPine BESYLATE/BENAZEPRIL 1 cap PO DAILY 03/06/17 06/21/21 History [amLODIPine BESYLATE/BENAZEPRIL 5-10 mg] Levothyroxine Sodium [Synthroid] 175 mcg PO DAILY 06/16/20 06/21/21 History Allergies Allergy/AdvReac Type Severity Reaction Status Date / Time Penicillins Allergy Rash/Hives Verified 06/21/21 10:57 Sulfa (Sulfonamide Allergy Rash/Hives Verified 06/21/21 10:57 Antibiotics) Exam Vital Signs Temp Pulse Resp BP Pulse Ox 06/21/21 10:57 98.2 F 89 18 127/82 98 Intake and Output 06/20/21 06/21/21 06/21/21 22:59 06:59 14:59 Other: Weight 89.358 kg Height 5 foot 1-1/2 inches, weight 197 pounds, BMI 36.6. This is a well-developed well-nourished heavyset white female who is alert and oriented times 3 in no acute distress. HEENT: Within normal limits. NECK: Supple without mass or thyromegaly. CHEST AND LUNGS: Clear to auscultation. HEART: Regular rate and rhythm. BREASTS: Are without mass or discharge. AXILLARY EXAM: Negative for adenopathy. BACK: Negative for CVA tenderness. ABDOMEN: Soft, obese, nontender, without palpable masses. PELVIC EXAM: External genitalia appears normal with mild to moderate atrophy. Vagina appears normal with mild to moderate atrophy. There is a grade 1 cystocele. The vaginal cuff seems well supported. Bimanual examination is negative for mass or tenderness. RECTAL EXAM: Rectovaginal exam is negative for mass or tenderness and is negative for occult blood. EXTREMITIES: Nontender. IMPRESSION: 1. 75 year old menapausal female who is s/p ANAYA for benign reasons with a nor mal gynecologic exam. 2. Mixed urinary incontinence not improved with kegal exercises and timed voids. PLAN: 1. Paps have been discontinued. 2. Self breast exams were discussed. 3. Screening mammogram will be done today. 4. I have offerer to refer her to Dr. Alberts, the purchasing specialist urologist for her incontinence. She will consider this and let me know if she desires the referrral. 5. She has completed her covid vaccination series and booster. 6.Osteoporosis prevention was discussed. She is declining bone density testing. 7. She will return in one year.
== END ==
LOC: WWCWWP 10:31
PROVIDERS: ATTEND Obstetrics & Gynecology
DX: Z01.419 Encounter for gynecological examination (general) (routine) without abnormal findings (principal); Z12.31 Encounter for screening mammogram for malignant neoplasm of breast; R32 Unspecified urinary incontinence; E78.5 Hyperlipidemia, unspecified; I10 Essential (primary) hypertension; M19.90 Unspecified osteoarthritis, unspecified site; E03.9 Hypothyroidism, unspecified; Z79.899 Other long term (current) drug therapy; Z88.0 Allergy status to penicillin; Z88.2 Allergy status to sulfonamides; Z90.710 Acquired absence of both cervix and uterus

== ENCOUNTER → 2021-10-12 | Outpatient (CLI) | payer MEDICARE ==
--- NOTE | 2021-10-12 09:07 | CT ---
EXAMINATION TYPE: CT chest abdomen w con DATE OF EXAM: 10/12/2021 COMPARISON: CT 01/13/2021 HISTORY: Renal/liver cyst, and lung nodule CT DLP: 1366 mGycm. Automated Exposure Control for Dose Reduction was Utilized. CONTRAST: CT scan of the thorax, abdomen and pelvis is performed with IV Contrast, patient injected with 80ml m L of Isovue 300. FINDINGS: There is a hiatal hernia with partial intrathoracic stomach. Some associated atelectasis is present. LUNGS: The lungs are grossly clear, there is no concerning parenchymal mass or nodule identified. T here is no pleural effusion or pneumothorax seen. The tracheobronchial tree is patent. MEDIASTINUM: There are no greater than 1 cm hilar or mediastinal lymph nodes. No pericardial effusi on is seen. There are coronary artery calcifications present. 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 LIVER/GB: No significant interval change is appreciated. PANCREAS: No significant abnormality is seen. SPLEEN: No significant abnormality is seen. ADRENALS: No significant double change is seen, prominence of the adrenal glands could be due to unde rlying adrenal hyperplasia. KIDNEYS: No significant interval change is seen, possible proteinaceous cyst mid pole left kidney, cy stic changes within the kidneys show a similar appearance to prior exam. There are some associated pa rapelvic cysts noted on the left. BOWEL: No significant abnormality is seen. GENITAL ORGANS: No gross abnormality seen. LYMPH NODES: No greater than 1cm abdominal or pelvic lymph nodes are appreciated. OSSEOUS STRUCTURES: No significant double change is seen, there is multilevel spondylosis in the visu alized spine. Postop changes are noted to the right shoulder. Degenerative disc changes noted in the lumbar spine as well with vacuum phenomenon, spondylolisthesis L3-4. OTHER: No significant additional abnormality is seen. IMPRESSION: Essentially stable findings. No significant interval change is noted. Large paraesophagea l hiatal hernia with intrathoracic stomach. Cystic changes within the kidneys show similar appearance . Coronary artery disease and additional findings above.
--- NOTE | 2021-10-12 13:00 | ECHOF ---
Referral Reason:I50.9 CHF MEASUREMENTS -------- HEIGHT: 154.9 cm WEIGHT: 88.5 kg BP: IVSd: 1.2 cm (0.6 - 1.1) LVIDd: 3.1 cm (3.9 - 5.3) LVPWd: 1.3 cm (0.6 - 1.1) EDV(Teich): 37 ml IVSs: 1.8 cm LVIDs: 1.9 cm LVPWs: 1.7 cm %IVS Thck: 48 % ESV(Teich): 11 ml EF(Teich): 69 % %FS: 38 % SV(Teich): 26 ml RVIDd: 4.0 cm (< 3.3) LALs A4C: 5.0 cm LAAs A4C: 20.3 cm LAESV A-L A4C: 69 ml LAESV MOD A4C: 64 ml LALs A2C: 5.2 cm LAAs A2C: 19.6 cm LAESV A-L A2C: 63 ml LAESV MOD A2C: 60 ml LAESV(A-L): 67 ml LAESV Index (A-L): 35.76 ml/m Ao Diam: 3.2 cm (2.0 - 3.7) LA Diam: 5.0 cm (2.7 - 3.8) AV Cusp: 1.6 cm (1.5 - 2.6) EPSS: 0.3 cm MV E Werner: 0.92 m/s MV DecT: 215 ms MV Dec Red [place]: 4.3 m/s MV A Werner: 1.13 m/s MV E/A Ratio: 0.81 MV PHT: 62 ms LVOT Vmax: 0.80 m/s LVOT maxP.59 mmHg AV Vmax: 1.63 m/s AV maxP.00 mmHg TR Vmax: 1.45 m/s TR maxP.41 mmHg RAP: 5.00 mmHg RVSP: 13.41 mmHg MV EF SLOPE: 47.97 mm/s (70 - 150) MV EXCURSION: 12.97 mm (> 18.000) FINDINGS -------- Sinus rhythm. This was a technically adequate study. The left ventricular size is normal. There is mild concentric left ventricular hypertrophy. Overa ll left ventricular systolic function is normal with, an EF between 55 - 60 %. The right ventricle is moderately enlarged. LA is moderately dilated 34-39 ml/m2 The right atrial size is normal. Mobile interatrial septum. There is mild aortic valve sclerosis. There is no evidence of aortic regurgitation. There is no e vidence of aortic stenosis. Mild mitral regurgitation is present. Mild tricuspid regurgitation present. There is no evidence of pulmonary hypertension. The right v entricular systolic pressure, as measured by Doppler, is 13.41mmHg. There is no pulmonic regurgitation present. The aortic root size is normal. IVC Not well visulized. There is no pericardial effusion. CONCLUSIONS -------- 1. The left ventricular size is normal. 2. There is mild concentric left ventricular hypertrophy. 3. Overall left ventricular systolic function is normal with, an EF between 55 - 60 %. 4. The right ventricle is moderately enlarged. 5. LA is moderately dilated 34-39 ml/m2 6. Mobile interatrial septum. 7. There is mild aortic valve sclerosis. 8. Mild mitral regurgitation is present. 9. Mild tricuspid regurgitation present. RETAIL SUPPORT ASSOCIATE: Betty Low, HOWARD
== END | disposition home or self-care (01) ==
LOC: RADCTMAIN 06:52
PROVIDERS: ATTEND Family Medicine
DX: K44.9 Diaphragmatic hernia without obstruction or gangrene (principal); I25.10 Atherosclerotic heart disease of native coronary artery without angina pectoris; I08.3 Combined rheumatic disorders of mitral, aortic and tricuspid valves; N28.1 Cyst of kidney, acquired; N94.89 Other specified conditions associated with female genital organs and menstrual cycle; M43.16 Spondylolisthesis, lumbar region; M51.36 Other intervertebral disc degeneration, lumbar region
CPT/HCPCS: 93306; 82565; 84520; 71260; 74160; 36415; Q9967

== ENCOUNTER 2022-03-28 05:44 | Day surgery (SDC) | payer MEDICARE ==
[~2022-03-28 05:44] MED LIST changes: -DOBUTamine DRIP for NUC MED 500 MG in DEXTROSE/WATER 1 250ML.BAG IV ONE; +LACTATED RINGERS 1,000 ML IV SCH
[2022-03-28 06:36] VITALS: TEMP 97
[2022-03-28] MEDS ORDERED: PROPOFOL 10 MG/ML 20 ML VIAL IV ONE (07:05)
[2022-03-28] MEDS ORDERED: LIDOCAINE 2% INJ 20 MG/ML (2 ML VIAL) ONE (07:05)
--- NOTE | 2022-03-28 07:32 | P.PCN ---
Date of Procedure: 03/28/22 Procedure(s) Performed: Brief history: Patient is a pleasant 76-year-old white female scheduled for an elective upper endoscopy as well as colonoscopy as a part of evaluation of long-standing history of GERD/hiatal hernia and prior history of colon polyps. She also has family history of colon cancer. Procedure performed: Esophagogastroduodenoscopy with biopsy Colonoscopy with snare polypectomy Preoperative diagnosis: GERD and large hiatal hernia History of colon polyps and family history of colon cancer Anesthesia: MAC Procedure: After informed consent was obtained from the patient was brought into the endoscopy unit and IV sedation was administered by anesthesia under continuous monitoring. Initially upper endoscopy was done. The Olympus GF 160 video endoscope was inserted inserted into the mouth and esophagus intubated without any difficulty and was gradually advanced into the stomach and duodenum and carefully examined. The bulb and second part of the duodenum appeared normal. The scope was then withdrawn into the stomach adequately insufflated with air and upon careful examination the antrum and body, had multiple alcohol home gastric polyps which were biopsied. Large hiatal hernia noted. The diaphragmatic impression was located at 45 cm from the incisors at the GE junc tion was located at 33 cm from the incisors. Mucosa cardia and fundus which was located a hiatal hernia sac appeared normal. The scope was then withdrawn into the esophagus. The GE junction was located at 33 cm to the incisors. It appeared regular with no erythema erosions or ulcerations. Rest of the esophagus appeared normal. Patient tolerated the procedure well. At this time the patient continued to remain sedation. Initial digital rectal examination was normal. Olympus CF 160 video colonoscope was then inserted into the rectum and gradually advanced to the cecum without any difficulty. Careful examination was performed as the scope was gradually being withdrawn. The prep was excellent. The cecum, appeared normal. In the ascending colon there were 2 polyps measuring 5 mm in size removed by snare polypectomy. Rest of the ascending colon, transverse colon, descending colon, sigmoid colon and rectum appeared normal. In the sigmoid colon there was another 5 limited polyp removed by snare polypectomy. Scattered sigmoidal mucosa seen. Retroflexion was performed in the rectum and no lesions were noted. Patient tolerated the procedure well. Impression: 1. Upper endoscopy revealed large hiatal hernia and multiple gastric polyps 2. Colonoscopy revealed 5 mm 2 ascending colon polyp status post polypectomy and a 5 mm sigmoid colon polyp status post polypectomy and scattered sigmoid diverticulosis Recommendations: Findings of this examination were discussed with the patient as well as her family. She was advised to follow with the biopsy results. If the biopsy results and she'll have a repeat colonoscopy in 5 years. She will continue with Pepcid as needed continue with small frequent meals and will be seen in office in 6 months.
[2022-03-28 08:04] VITALS: BP 137/82; PULSE 78; RESP 18
== END 2022-03-28 08:25 | disposition home or self-care (01) ==
LOC: ORWHC2ENDO 05:44
PROVIDERS: ATTEND Internal Medicine Gastroenterology
DX: D12.5 Benign neoplasm of sigmoid colon (principal); K31.7 Polyp of stomach and duodenum; K29.50 Unspecified chronic gastritis without bleeding; K57.30 Diverticulosis of large intestine without perforation or abscess without bleeding; K44.9 Diaphragmatic hernia without obstruction or gangrene; K21.9 Gastro-esophageal reflux disease without esophagitis; I10 Essential (primary) hypertension; E07.9 Disorder of thyroid, unspecified; E78.5 Hyperlipidemia, unspecified; Z86.010 Personal history of colon polyps; Z80.0 Family history of malignant neoplasm of digestive organs; Z88.2 Allergy status to sulfonamides; Z88.0 Allergy status to penicillin; Z90.89 Acquired absence of other organs; Z98.890 Other specified postprocedural states; Z79.899 Other long term (current) drug therapy; Z79.890 Hormone replacement therapy
CPT/HCPCS: 88305; 45385; 43239; J2704; J2001

== ENCOUNTER → 2022-07-18 | Outpatient (CLI) | payer MEDICARE ==
[2022-07-18 11:14] VITALS: BP 121/85; PULSE 87; RESP 17; TEMP 98.2
--- NOTE | 2022-07-18 11:53 | P.HPOB ---
History of Present Illness H&P Date: 07/18/22 Chief Complaint: The patient is here for her routine gynecologic exam and ma mmogram. This is a 76-year-old G0 with an LMP of 1985. She is status post ANAYA for benign reasons. She continues to experience some urinary incontinence sometimes noticed with position changes as well as some with urge symptoms where she needs to get to the bathroom right away. She continues to take Myrbetriq which does help a little. She is otherwise without complaints. Review of Systems The patient has lost 4 pounds over the last year. She denies respiratory, cardiac, or G.I. problems. Past Medical History Past Medical History: GERD/Reflux, Hyperlipidemia, Hypertension, Osteoarthritis (OA), Thyroid Disorder Additional Past Medical History / Comment(s): MACULAR DEGENERATION. Hiatal hernia. Sjogren's syndrome. Hypothyroidism. 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 ANAYA was done for uterine fibroids. History of Any Multi-Drug Resistant Organisms: None Reported Past Surgical History: Hernia Repair, Hysterectomy, Joint Replacement, Orthopedic Surgery Additional Past Surgical History / Comment(s): BILATERAL CATARACT/LENS. THYROIDECTOMY, BILATERAL INGUINAL HERNIA REPAIR, RIGHT TOTAL HIP, LEFT TOTAL HIP, TOTAL RIGHT SHOULDER REPLACMENT, TOTAL RIGHT AND LEFT KNEE REPLACEMENT. ANAYA in 1985. Colonoscopy with upper endoscopy 2021(next after 5yr). Past Anesthesia/Blood Transfusion Reactions: No Reported Reaction Past Psychological History: No Psychological Hx Reported Smoking Status: Never smoker Past Alcohol Use History: Rare (2 per Year) Past Drug Use History: None Reported Additional History: She is single and is not sexually active. 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 - Past Family History Mother Family Medical History: Cancer, Hypertension Additional Family Medical History / Comment(s): Lung cancer. Father Family Medical History: Cancer, Hypertension Additional Family Medical History / Comment(s): Esophageal cancer. Brother(s) Family Medical History: Cancer Additional Family Medical History / Comment(s): Colon cancer and skin cancer. Medications and Allergies Home Medications Medication Instructions Recorded Confirmed Type Acetaminophen Tab [Tylenol Tab] 500 mg PO Q6H 03/06/17 07/18/22 History Cholecalciferol (Vitamin D3) 2,000 unit PO DAILY 03/06/17 07/18/22 History [Vitamin D3] Pantoprazole [Protonix] 40 mg PO BID 03/06/17 07/18/22 History Pravastatin Sodium [Pravachol] 40 mg PO QAM 03/06/17 07/18/22 History Triamterene/Hydrochlorothiazid 1 each PO QAM 03/06/17 07/18/22 History [Triamterene-Hctz 37.5-25 mg Tb] amLODIPine BESYLATE/BENAZEPRIL 1 cap PO QAM 03/06/17 07/18/22 History [amLODIPine BESYLATE/BENAZEPRIL 5-10 mg] Levothyroxine Sodium [Synthroid] 175 mcg PO MOTUWETHFRSA 06/16/20 07/18/22 History Mirabegron [Myrbetriq] 50 mg PO QAM 03/24/22 07/18/22 History Vits A,C,E/Lutein/Minerals 1 tab PO BID 03/24/22 07/18/22 History [Ocuvite with Lutein Tablet] Allergies Allergy/AdvReac Type Severity Reaction Status Date / Time Penicillins Allergy Rash/Hives Verified 07/18/22 11:08 Sulfa (Sulfonamide Allergy Rash/Hives Verified 07/18/22 11:08 Antibiotics) Exam Vital Signs Temp Pulse Resp BP Pulse Ox 07/18/22 11:10 98.2 F 87 17 121/85 98 Intake and Output 07/17/22 07/18/22 07/18/22 22:59 06:59 14:59 Other: Weight 87.543 kg Height 5 feet 2 inches, weight 193 pounds, BMI 35.3. This is a well-developed well-nourished white female who is alert and oriented times 3 in no acute distress. HEENT: Within normal limits. NECK: Supple without mass or thyromegaly. CHEST AND LUNGS: Clear to auscultation. HEART: Regular rate and rhythm. BREASTS: Are without mass or discharge. AXILLARY EXAM: Negative for adenopathy. BACK: Negative for CVA tenderness. ABDOMEN: Soft, nontender, without palpable masses. PELVIC EXAM: External genitalia appears normal with mild to moderate atrophy. Vagina appears normal with mild to moderate atrophy. There is no evidence of prolapse. Bimanual examination is negative for mass or tenderness. RECTAL EXAM: Rectovaginal exam is negative for mass or tenderness and is negative for occult blood. EXTREMITIES: Nontender. IMPRESSION: 1. 76-year-old menopausal female status post ANAYA for benign reasons, with normal gynecologic exam. 2. Mixed urinary incontinence with no significant physical findings on exam today. PLAN: 1. Pap smears have been discontinued. 2. Self breast awareness was discussed with the patient. We have also discussed symptoms associated with inflammatory breast cancer. 3. Screening mammogram will be done today. 4. I have again offered to refer her to a gynecologic urologist for her incontinence. She is declining this at this time, but will let me know if she changes her mind. 5. Osteoporosis prevention was discussed. I have stressed the importance of adequate calcium, vitamin D and regular exercise. Recommended amounts of calcium and vitamin D were also discussed. I have recommended bone density test since she has not had this for many years. She again is declining bone density testing. 6. She has completed her Covid vaccination series and has received 2 boosters. 7. She was advised to return in one year for her annual well woman exam.
--- NOTE | 2022-07-18 12:44 | MM ---
Reason for Exam: Screening (asymptomatic). Last mammogram was performed 1 year(s) and 1 month(s) ago. Patient History: Menarche at age 11. Patient has no children. Hysterectomy at age 40. Postmenopausal. Risk Values: Jaida 5 year model risk: 1.9%. NCI Lifetime model risk: 3.7%. Prior Study Comparison: 07/09/2018 Bilateral Screening Mammogram, [facility]. 06/16/2020 Bilateral Screening Mammogram, [facility]. 06/21/2021 Bilateral Screening Mammogram, [facility]. Tissue Density: The breast tissue is heterogeneously dense. This may lower the sensitivity of mammography. Findings: Analyzed By CAD. There is no suspicious group of microcalcifications or new suspicious mass in either breast. Benign round calcifications within both breasts. No significant change from prior exams. Overall Assessment: Benign, BI-RAD 2 Management: Screening Mammogram of both breasts in 1 year. A clinical breast exam by your physician is recommended on an annual basis and results should be correlated with mammographic findings. Electronically signed and approved by: Chalino Ordoñez D.O.
== END ==
LOC: WWCWWP 11:02
PROVIDERS: ATTEND Obstetrics & Gynecology
DX: Z12.31 Encounter for screening mammogram for malignant neoplasm of breast (principal); Z01.419 Encounter for gynecological examination (general) (routine) without abnormal findings; K21.9 Gastro-esophageal reflux disease without esophagitis; E78.5 Hyperlipidemia, unspecified; I10 Essential (primary) hypertension; M19.90 Unspecified osteoarthritis, unspecified site; Z88.0 Allergy status to penicillin; Z88.2 Allergy status to sulfonamides; Z90.710 Acquired absence of both cervix and uterus; N39.46 Mixed incontinence
CPT/HCPCS: 77063; 77067

== ENCOUNTER → 2022-12-21 | Outpatient (CLI) | payer MEDICARE ==
--- NOTE | 2022-12-23 12:11 | CT ---
EXAMINATION TYPE: CT ChestAbdPelvis w con CT DLP: 1742 mGycm, Automated exposure control for dose reduction was used. DATE OF EXAM: 12/21/2022 3:08 PM COMPARISON: CT chest dating back to 01/13/2021 and 04/01/2019 CLINICAL INDICATION:Female, 77 years old with history of R10.12 LUQ Pain;, LUQ abdominal pain. Technique: Multiple axial images of the chest, abdomen, and pelvis were obtained. Two-dimensional cor onal and sagittal reconstructions were obtained. Contrast used:100ml mL of Isovue 300 with IV Contrast, Oral contrast used: with Oral Contrast Findings: CHEST: LUNGS/ PLEURA: Ground glass and nodular opacities in the right upper lobe posteriorly. There is an ad jacent remote appearing fractured rib. No focal consolidation, pneumothorax or pleural effusion. AIRWAY: Patent and unremarkable. HEART: The heart is mildly enlarged for size there is coronary artery calcifications. MEDIASTINUM: No gross evidence of adenopathy. VASCULATURE: No aortic aneurysm. 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 MUSCULOSKELETAL: No acute osseous abnormalities. Right shoulder arthroplasty changes hardware appears intact. SOFT TISSUES/LYMPH NODES: Unremarkable. LOWER NECK: No significant findings. ABDOMEN: ABDOMEN LIVER: Unremarkable GALLBLADDER AND BILE DUCTS: Unremarkable. PANCREAS: Unremarkable. SPLEEN: Unremarkable. ADRENAL GLANDS: Adenomatous hypertrophy changes to the left adrenal gland. KIDNEYS AND URETERS: No evidence of hydronephrosis or renal calculus. Bilateral simple appearing lambert l cysts. PELVIS BLADDER: Unremarkable REPRODUCTIVE: Unremarkable. ABDOMEN & PELVIS STOMACH AND BOWEL: Large hiatal hernia is present with the majority of the stomach in the thorax. No evidence of bowel obstruction. PERITONEUM: No evidence of pneumoperitoneum or free fluid. VASCULATURE: No evidence of aortic aneurysm. MUSCULOSKELETAL: No acute osseous abnormalities. Streak artifact limits evaluation of the pelvis seco ndary to bilateral hip arthroplasty changes. Hardware appears intact. Multilevel disc degeneration ch anges of the spine. Grade 1 anterolisthesis of L3 on L4. There is kyphosis of the thoracic spine and lordosis of the lumbar spine. LYMPH NODES: No gross evidence for lymphadenopathy. SOFT TISSUE/ABDOMINAL WALL: Unremarkable IMPRESSION: 1. Large hiatal hernia is present with the majority of the stomach in the thorax/mediastinum. 2. Minimal ground glass nodular opacities in the right upper lobe posteriorly which is mildly more p rominent from 01/13/2021, given the adjacent remote rib fracture could be sequela prior injury. This 3. Scattered colonic diverticula. 4. Moderate multilevel disc degeneration changes with grade 1 anterolisthesis of L3 on L4.
== END | disposition home or self-care (01) ==
LOC: RADCTMAIN 13:02
PROVIDERS: ATTEND Family Medicine
DX: K57.30 Diverticulosis of large intestine without perforation or abscess without bleeding (principal); M43.16 Spondylolisthesis, lumbar region; K44.9 Diaphragmatic hernia without obstruction or gangrene; R91.8 Other nonspecific abnormal finding of lung field; R10.12 Left upper quadrant pain
CPT/HCPCS: 82565; 84520; 71260; 74177; 36415; Q9967

== ENCOUNTER → 2023-08-07 | Outpatient (CLI) | payer MEDICARE ==
[2023-08-07 08:57] VITALS: BP 135/96; PULSE 94; RESP 18; TEMP 98
--- NOTE | 2023-08-07 09:01 | P.HPOB ---
History of Present Illness H&P Date: 08/07/23 Chief Complaint: The patient is here for her routine gynecologic exam and ma mmogram. This is a 77-year-old G0 with an LMP of 1985. She is status post ANAYA for benign reasons. She is without gynecologic complaints. Review of Systems Weight has been stable. Respiratory: Occasional shortness of breath and she attributes this to her hiatal hernia. She is seeing doctors for this. She denies cardiac or GI problems. Past Medical History Past Medical History: GERD/Reflux, Hyperlipidemia, Hypertension, Osteoarthritis (OA), Thyroid Disorder Additional Past Medical History / Comment(s): MACULAR DEGENERATION. Hiatal hernia. Sjogren's syndrome. Hypothyroidism. 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 ANAYA was done for uterine fibroids. History of Any Multi-Drug Resistant Organisms: None Reported Past Surgical History: Hernia Repair, Hysterectomy, Joint Replacement, Orthopedic Surgery Additional Past Surgical History / Comment(s): BILATERAL CATARACT/LENS. THYROIDECTOMY, BILATERAL INGUINAL HERNIA REPAIR, RIGHT TOTAL HIP, LEFT TOTAL HIP, TOTAL RIGHT SHOULDER REPLACMENT, TOTAL RIGHT AND LEFT KNEE REPLACEMENT. ANAYA in 1985. Colonoscopy with upper endoscopy 2021(next after 5yr). Past Anesthesia/Blood Transfusion Reactions: No Reported Reaction Past Psychological History: No Psychological Hx Reported (PHQ-2 questionaire was given and she scores 0. This is a negative screen for depression.) Smoking Status: Never smoker Past Alcohol Use History: Rare (3 drinks per year.) Past Drug Use History: None Reported Additional History: She is single and is not sexually active. 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 - Past Family History Mother Family Medical History: Cancer, Hypertension Additional Family Medical History / Comment(s): Lung cancer. Father Family Medical History: Cancer, Hypertension Additional Family Medical History / Comment(s): Esophageal cancer. Brother(s) Family Medical History: Cancer Additional Family Medical History / Comment(s): Colon cancer and skin cancer. Medications and Allergies Home Medications Medication Instructions Recorded Confirmed Type Acetaminophen Tab [Tylenol Tab] 500 mg PO Q6H 03/06/17 07/18/22 History Cholecalciferol (Vitamin D3) 2,000 unit PO DAILY 03/06/17 07/18/22 History [Vitamin D3] Pantoprazole [Protonix] 40 mg PO BID 03/06/17 07/18/22 History Pravastatin Sodium [Pravachol] 40 mg PO QAM 03/06/17 07/18/22 History Triamterene/Hydrochlorothiazid 1 each PO QAM 03/06/17 07/18/22 History [Triamterene-Hctz 37.5-25 mg Tb] amLODIPine BESYLATE/BENAZEPRIL 1 cap PO QAM 03/06/17 07/18/22 History [amLODIPine BESYLATE/BENAZEPRIL 5-10 mg] Levothyroxine Sodium [Synthroid] 175 mcg PO MOTUWETHFRSA 06/16/20 07/18/22 History Mirabegron [Myrbetriq] 50 mg PO QAM 03/24/22 07/18/22 History Vits A,C,E/Lutein/Minerals 1 tab PO BID 03/24/22 07/18/22 History [Ocuvite with Lutein Tablet] Allergies Allergy/AdvReac Type Severity Reaction Status Date / Time Penicillins Allergy Rash/Hives Verified 08/07/23 08:37 Sulfa (Sulfonamide Allergy Rash/Hives Verified 08/07/23 08:37 Antibiotics) Exam Vital Signs Temp Pulse Resp BP Pulse Ox 08/07/23 08:37 98 F 94 18 135/96 98 Intake and Output 08/06/23 08/07/23 08/07/23 22:59 06:59 14:59 Other: Weight 87.09 kg Height 5 foot 1 inch, weight 192 pounds, BMI 36.3. This is a well-developed well-nourished white female who is alert and oriented times 3 in no acute distress. HEENT: Within normal limits. NECK: Supple without mass or thyromegaly. CHEST AND LUNGS: Clear to auscultation. HEART: Regular rate and rhythm. BREASTS: Are without mass or discharge. AXILLARY EXAM: Negative for adenopathy. BACK: Negative for CVA tenderness. ABDOMEN: Soft, nontender, without palpable masses. PELVIC EXAM: External genitalia reveals a small 0.5 cm right labia majora inclusion cyst which appears completely benign. This is smooth, mobile, and nontender. The patient states she has noticed this for a while. It occasionally will itch, but otherwise causes no pain. Vagina appears normal with moderate atrophy. There is a stable grade 1 cystocele. Bimanual examination is negative for mass or tenderness. RECTAL EXAM: Rectovaginal exam is negative for mass or tenderness and is negative for occult blood. EXTREMITIES: Nontender. IMPRESSION: 1. 77-year-old menopausal female status post ANAYA for benign reasons with stable grade 1 cystocele. 2. Benign-appearing small right labial inclusion cyst. 3. Mildly elevated blood pressure with history of chronic hypertension. PLAN: 1. Pap smears have been discontinued. 2. Self breast awareness was discussed with the patient. We have also discussed symptoms associated with inflammatory breast cancer. 3. Screening mammogram will be done today. 4. PHQ-2 questionaire was given and she scores 0. This is a negative screen for depression. 5. We have discussed her mildly elevated blood pressure. She states she has not taken her blood pressure medication yet today. I recommended that she check her own blood pressure on a regular basis and follow up with her PCP for blood pressure elevations. 6.Osteoporosis prevention was discussed. I have stressed the importance of adequate calcium, vitamin D and regular exercise. Recommended amounts of calcium and vitamin D were also discussed. She again is declining bone density testing. 7. We have had a long discussion regarding the benign-appearing labial inclusion cyst. I reassured her that this is a benign condition. She will let me know if there aren't any significant changes. 8. She was advised to return in one year for her annual well woman exam.
--- NOTE | 2023-08-07 18:15 | MM ---
Reason for Exam: Screening (asymptomatic). Last mammogram was performed 1 year(s) and 1 month(s) ago. Patient History: Menarche at age 11. Patient has no children. Hysterectomy at age 40. Postmenopausal. Risk Values: Jaida 5 year model risk: 1.9%. NCI Lifetime model risk: 3.4%. Prior Study Comparison: 06/16/2020 Bilateral Screening Mammogram, [facility]. 06/21/2021 Bilateral Screening Mammogram, [facility]. 07/18/2022 Bilateral MG 3D screening mammo w/cad, [facility]. Tissue Density: There are scattered fibroglandular densities. Findings: Analyzed By CAD. Lateral nodularity in the right breast at a middle depth is more defined. Further evaluation is recommended. Otherwise, no significant change. Overall Assessment: Incomplete: need additional imaging evaluation, BI-RAD 0 Management: Special View Mammogram of the right breast. Diagnostic Breast Ultrasound of the right breast. Additional views right breast to include spot 3-D CC, 3-D CC rolled, and 3-D ML views. Targeted right breast ultrasound if any persisting abnormality. [facility] will attempt to contact patient to return for supplemental views and ultrasound if indicated. Electronically signed and approved by: Edita Orr M.D. Radiologist
== END ==
LOC: WWCWWP 08:06
PROVIDERS: ATTEND Obstetrics & Gynecology
DX: Z12.31 Encounter for screening mammogram for malignant neoplasm of breast (principal); E03.9 Hypothyroidism, unspecified; E78.5 Hyperlipidemia, unspecified; I10 Essential (primary) hypertension; K21.9 Gastro-esophageal reflux disease without esophagitis; M19.90 Unspecified osteoarthritis, unspecified site; M35.00 Sjogren syndrome, unspecified; Z78.0 Asymptomatic menopausal state; Z88.0 Allergy status to penicillin; Z88.2 Allergy status to sulfonamides; Z79.890 Hormone replacement therapy; Z79.899 Other long term (current) drug therapy
CPT/HCPCS: 77063; 77067

== ENCOUNTER → 2023-08-14 | Outpatient (CLI) | payer MEDICARE ==
--- NOTE | 2023-08-14 08:53 | MM ---
Reason for Exam: Additional evaluation requested from abnormal screening. Last screening mammogram was performed less than 1 month ago. Patient History: Menarche at age 11. Patient has no children. Hysterectomy at age 40. Postmenopausal. Risk Values: Jaida 5 year model risk: 1.9%. NCI Lifetime model risk: 3.4%. Prior Study Comparison: 05/30/2017 Bilateral Screening Mammogram, [facility]. 07/09/2018 Bilateral Screening Mammogram, [facility]. 06/16/2020 Bilateral Screening Mammogram, [facility]. 06/21/2021 Bilateral Screening Mammogram, [facility]. 07/18/2022 Bilateral MG 3D screening mammo w/cad, [facility]. 08/07/2023 Bilateral MG 3D screening mammo w/cad, [facility]. Tissue Density: Right: There are scattered fibroglandular densities. Findings: Analyzed By CAD. Nodular densities in the right breast lateral aspect 12 cm from nipple approximately 19 mm apart first more anteriorly measuring 6 cm and the second measuring 4 mm. Overall Assessment: Incomplete: need additional imaging evaluation, BI-RAD 0 Management: Diagnostic Breast Ultrasound of the right breast. Results were given to the patient verbally at the time of exam. Patient should continue monthly self-breast exams. A clinical breast exam by your physician is recommended on an annual basis. This exam should not preclude additional follow-up of suspicious palpable abnormalities. Note on Jaida scores and lifetime risk: 1. A Jadia score greater than 3% is considered moderate risk. If this is the case, consider specialist referral to assess eligibility for a risk reducing agent. 2. If overall lifetime risk for the development of breast cancer is 20% or higher, the patient may qualify for future screening with alternating mammogram and breast MRI. Electronically signed and approved by: Delvin Mcdaniels DO
--- NOTE | 2023-08-14 08:53 | USB ---
Reason for Exam: Additional evaluation requested from abnormal screening. Patient History: Menarche at age 11. Patient has no children. Hysterectomy at age 40. Postmenopausal. Risk Values: Jaida 5 year model risk: 1.9%. NCI Lifetime model risk: 3.4%. Technique: Method: Targeted. Prior Study Comparison: 06/21/2021 Bilateral Screening Mammogram, [facility]. 07/18/2022 Bilateral MG 3D screening mammo w/cad, [facility]. 08/07/2023 Bilateral MG 3D screening mammo w/cad, [facility]. Findings: The upper outer quadrant of the right breast and the axilla of the right breast were scanned. Technique utilized:US breast workup limited RT Image; Ultrasound imaging of: Area of concern, retroareolar region and axilla. At 12 cm from the nipple at 10:00 there is a 4 x 3 x 4 mm anechoic cyst. No suspicious masses. Overall Assessment: Benign, BI-RAD 2 Management: Screening Mammogram of both breasts in 1 year. A clinical breast exam by your physician is recommended on an annual basis and results should be correlated with mammographic findings. This exam should not preclude additional follow-up of suspicious palpable abnormalities. Results were given to the patient verbally at the time of exam. Electronically signed and approved by: Delvin Mcdaniels DO
== END | disposition home or self-care (01) ==
LOC: RADMAMWWP 07:59
PROVIDERS: ATTEND Obstetrics & Gynecology
DX: N60.01 Solitary cyst of right breast (principal); R92.321 Mammographic fibroglandular density, right breast; Z78.0 Asymptomatic menopausal state
CPT/HCPCS: 77065; 76642; G0279; 77061